=== PATIENT | female | born 1990 | race Caucasian/White ===

== ENCOUNTER 2017-04-17 03:40 | Emergency (ER) | payer MEDICAID ==
[~2017-04-17] VITALS: Ht 172.7 cm; Wt 50.0 kg
[2017-04-17 03:53] VITALS: BP 136/80
== END 2017-04-17 05:46 | disposition left against medical advice (07) ==
LOC: ER 03:40
DX: F41.9 Anxiety disorder, unspecified (principal); Z53.21 Procedure and treatment not carried out due to patient leaving prior to being seen by health care provider

== ENCOUNTER 2017-07-03 21:56 | Emergency (ER) | payer MEDICAID ==
[~2017-07-03] VITALS: Ht 160 cm; Wt 82.0 kg
[2017-07-03 22:02] VITALS: BP 109/65
== END 2017-07-04 01:20 | disposition left against medical advice (07) ==
LOC: ER 21:56
DX: R21 Rash and other nonspecific skin eruption (principal); Z53.21 Procedure and treatment not carried out due to patient leaving prior to being seen by health care provider

== ENCOUNTER 2017-09-08 03:47 | Emergency (ER) | payer MEDICAID ==
[~2017-09-08] VITALS: Ht 167.6 cm; Wt 78.0 kg
[2017-09-08 03:48] VITALS: BP 127/78
== END 2017-09-08 05:17 | disposition left against medical advice (07) ==
LOC: ER 04:01
DX: R45.851 Suicidal ideations (principal); Z53.21 Procedure and treatment not carried out due to patient leaving prior to being seen by health care provider

== ENCOUNTER 2018-04-14 21:42 | Emergency (ER) | payer MEDICAID ==
[~2018-04-14] VITALS: Ht 160 cm; Wt 67.0 kg
[2018-04-14 22:30] VITALS: BP 122/74
== END 2018-04-15 01:00 | disposition left against medical advice (07) ==
LOC: ER 21:42
DX: Z53.21 Procedure and treatment not carried out due to patient leaving prior to being seen by health care provider (principal)

== ENCOUNTER 2018-04-23 18:46 | Emergency (ER) | payer MEDICAID ==
[~2018-04-23] VITALS: Ht 160 cm; Wt 63.0 kg
[2018-04-24 00:26] VITALS: BP 132/76
== END 2018-04-24 01:34 | disposition left against medical advice (07) ==
LOC: ER 18:46
DX: Z53.21 Procedure and treatment not carried out due to patient leaving prior to being seen by health care provider (principal)

== ENCOUNTER 2019-09-14 06:20 | Emergency (ER) | payer SELFPAY | END 2019-09-14 06:30 | disposition left against medical advice (07) | LOC: ER 06:20 | DX: Z53.21 Procedure and treatment not carried out due to patient leaving prior to being seen by health care provider (principal) ==

== ENCOUNTER 2020-01-26 20:39 | Emergency (ER) | payer SELFPAY ==
[~2020-01-26] VITALS: Ht 162.6 cm; Wt 69.0 kg
[2020-01-26] MEDS ORDERED: SODIUM CHLORIDE 0.9% 1,000 ML IV ONE (21:45)
[2020-01-26 23:30] VITALS: BP 110/68
[2020-01-26 23:39] LABS: CLARITY URINE CLEAR (CLEAR); COLOR URINE DARK YELLOW (YELLOW); KETONES URINE NEGATIVE (NEGATIVE); LEUKOCYTE ESTERASE URINE TRACE (NEGATIVE); NITRITE URINE NEGATIVE (NEGATIVE); OCCULT BLOOD URINE NEGATIVE (NEGATIVE); PH URINE 5.5 (4.5-8.0); PROTEIN URINE TRACE (NEGATIVE); SPECIFIC GRAVITY URINE 1.031 (1.005-1.030); UROBILINOGEN URINE 0.2 E.U./dL (0.2-1.0)
[2020-01-27 00:02] LABS: *BARBITURATES SCREEN URINE NEGATIVE (NEGATIVE); *BENZODIAZEPINES SCREEN URINE NEGATIVE (NEGATIVE); *COCAINE SCREEN URINE NEGATIVE (NEGATIVE); METHADONE URINE SCREEN NEGATIVE (NEGATIVE); PHENCYCLIDINE URINE SCREEN NEGATIVE (NEGATIVE)
[2020-01-27 00:03] LABS: CANNABINOID URINE SCREEN NEGATIVE (NEGATIVE)
[2020-01-27 00:12] LABS: *AMPHETAMINES SCREEN URINE PRESUMTIVE POSITIVE (NEGATIVE); OPIATES URINE SCREEN PRESUMTIVE POSITIVE (NEGATIVE)
== END 2020-01-27 00:32 | disposition home or self-care (01) ==
LOC: ER 20:39
DX: R45.851 Suicidal ideations (principal); F15.10 Other stimulant abuse, uncomplicated; F11.10 Opioid abuse, uncomplicated; F32.9 Major depressive disorder, single episode, unspecified; Z98.890 Other specified postprocedural states
CPT/HCPCS: 71045; 80305; 81003; 81025; 93005; 99285; J7030

== ENCOUNTER 2021-07-30 23:54 | Emergency (ER) | payer SELFPAY ==
[~2021-07-30] VITALS: Ht 162.6 cm; Wt 63.1 kg
[2021-07-31 00:50] VITALS: BP 106/69
== END 2021-07-31 02:58 | disposition left against medical advice (07) ==
LOC: ER 23:54
DX: Z20.2 Contact with and (suspected) exposure to infections with a predominantly sexual mode of transmission (principal)
CPT/HCPCS: 99281

== ENCOUNTER 2021-08-04 23:40 | Emergency (ER) | payer SELFPAY ==
[~2021-08-04] VITALS: Ht 172.7 cm; Wt 68.0 kg
[2021-08-04 23:49] VITALS: BP 113/69
[2021-08-05 01:19] LABS: BASOPHILS % 0.6 % (0.0-2.0); EOSINOPHILS % 1.4 % (0.0-5.0); HEMATOCRIT. 31.8 % (36.0-48.0); LYMPHOCYTES % 44.5 % (20.0-50.0); MEAN CORPUSCULAR HEMOGLOBIN 24.3 pg (28.0-32.0); MEAN CORPUSCULAR VOLUME 76.9 fL (81.0-99.0); MEAN PLATELET VOLUME 8.6 fl (7.4-10.4); MONOCYTES % 8.1 % (2.0-8.0); NEUTROPHILS % 45.4 % (40.0-76.0); PLATELET 242 x1000/uL (130-400); RED BLOOD CELL COUNT 4.14 mill/uL (4.2-5.4); RED CELL DISTRIBUTION WIDTH 19.6 % (11.6-14.6)
[2021-08-05 01:28] LABS: CHLORIDE 108 mEq/L (98-107)
[2021-08-05 01:35] LABS: ETHANOL BLOOD < 10 mg/dL
[2021-08-05 01:44] LABS: HCG SCREEN NEGATIVE
[2021-08-05 10:52] LABS: *BARBITURATES SCREEN URINE NEGATIVE (NEGATIVE); *BENZODIAZEPINES SCREEN URINE NEGATIVE (NEGATIVE); *COCAINE SCREEN URINE NEGATIVE (NEGATIVE); CANNABINOID URINE SCREEN NEGATIVE (NEGATIVE); METHADONE URINE SCREEN NEGATIVE (NEGATIVE); PHENCYCLIDINE URINE SCREEN NEGATIVE (NEGATIVE)
[2021-08-05 10:58] LABS: *AMPHETAMINES SCREEN URINE PRESUMTIVE POSITIVE (NEGATIVE); OPIATES URINE SCREEN PRESUMTIVE POSITIVE (NEGATIVE)
== END 2021-08-05 14:53 | disposition home or self-care (01) ==
LOC: ER 23:40
DX: R45.851 Suicidal ideations (principal); F15.10 Other stimulant abuse, uncomplicated; Z98.890 Other specified postprocedural states
CPT/HCPCS: 36415; 80053; 80305; 80307; 80320; 80329; 84703; 85025; 93005; 99284; G0480

== ENCOUNTER 2021-08-25 03:10 | Emergency (ER) | payer MEDICAID ==
[~2021-08-25] VITALS: Ht 162.6 cm; Wt 61.0 kg
[2021-08-25 03:16] VITALS: BP 121/82
[2021-08-25 04:15] LABS: CLARITY URINE TURBID (CLEAR); COLOR URINE YELLOW (YELLOW); KETONES URINE TRACE (NEGATIVE); LEUKOCYTE ESTERASE URINE 2+ (NEGATIVE); NITRITE URINE POSITIVE (NEGATIVE); OCCULT BLOOD URINE NEGATIVE (NEGATIVE); PROTEIN URINE 1+ (NEGATIVE); SPECIFIC GRAVITY URINE 1.021 (1.005-1.030)
[2021-08-25] MEDS ORDERED: NITR-87 MT (05:07)
== END 2021-08-25 05:30 | disposition home or self-care (01) ==
LOC: ER 03:10
DX: N39.0 Urinary tract infection, site not specified (principal); F20.9 Schizophrenia, unspecified; F15.10 Other stimulant abuse, uncomplicated; F19.10 Other psychoactive substance abuse, uncomplicated
CPT/HCPCS: 81003; 99283

== ENCOUNTER 2021-08-29 21:42 | Emergency (ER) | payer MEDICAID ==
[~2021-08-29 21:42] MED LIST: NITR-87 MT
== END 2021-08-30 00:10 | disposition left against medical advice (07) ==
LOC: ER 21:42
DX: Z53.21 Procedure and treatment not carried out due to patient leaving prior to being seen by health care provider (principal)